=== PATIENT | male | born 1970 | race Caucasian/White ===

== ENCOUNTER → 2016-12-27 | Outpatient (CLI) | payer OTHER ==
--- NOTE | 2016-12-27 09:43 | PFTRPT ---
Tech: Lashanda RANKIN, STRATEGIC COMMUNICATIONS SPECIALIST Age: 46 Sex: Male Race: Height: 68.00 Inches Weight: 230.00 Lbs BSA: 2.17 Diagnosis: ASTHMA TECH NOTES: Test appears to be valid, although the ATS standard for "end of test " was not met. The patient felt as if he was going to pass out during FVC maneuver. The patient was given four puffs of albuterol for postbronchodilator. PULMONARY FUNCTION REPORT ORDERING PROVIDER: Dee Dee Ashraf M.D. DATE OF SERVICE: 12/27/16 SPIROMETRY: Pre and post bronchodilator study of excellent technical quality. Some difficulty with the required maneuver is noted. The forced vital capacity is normal. The FEV1 is in proportion. The obstructive index is, therefore, normal. FLOW VOLUME LOOP: The expiratory limb of the flow volume loop does suggest some difficulty with the required maneuver. No significant additional bronchodilator response is identified. LUNG VOLUMES: The total lung capacity is normal. The residual volume is in proportion. DIFFUSION CAPACITY: The diffusion capacity is normal. HEMOGLOBIN: No hemoglobin is available for correction. AIRWAY MECHANICS: Airways resistance and conductance are normal. IMPRESSION: Probably normal study. MTDD
== END ==
LOC: M CARPUL 08:55
PROVIDERS: ATTEND Internal Medicine
DX: I11.9 Hypertensive heart disease without heart failure (principal); J45.909 Unspecified asthma, uncomplicated

== ENCOUNTER 2017-07-26 20:29 | Emergency (ER) | payer OTHER ==
[~2017-07-26] VITALS: Ht 172.7 cm; Wt 111.4 kg
[2017-07-26] MEDS ORDERED: NS 1,000 ML IV SCH (20:46)
[2017-07-26] MEDS ORDERED: MECL1CHW2 PO (20:49)
[2017-07-26] MEDS ORDERED: MECLIZINE 25 MG TABLET PO ONE (21:00)
--- NOTE | 2017-07-26 21:10 | REPUSA ---
CT of the head Clinical history: altered mental status. Comparison: 01/01/2015. Technique: Multiple axial CT images were obtained through the head without administration of contrast . Findings: The ventricles and sulci are symmetric bilaterally. There is no evidence of acute hemorrhag e or infarct. There is no midline shift, mass effect, or extra-axial fluid collection. The osseous st ructures are unremarkable. The visualized paranasal sinuses and mastoid air cells are clear. Impression: Negative study.
[2017-07-26 21:11] LABS: BASO # 0.1 10^3/uL (0.0-0.2); BASO % 0.3 % (0.0-1.0); EOS % 0.1 % (0.0-3.0); IMMATURE GRANULOCYTE % 0.5 % (0-0); LYMPH # 0.7 10^3/uL (1.5-4.5); LYMPH % 3.7 % (24.0-44.0); MEAN CORPUSCULAR HEMOGLOBIN 28.9 pg (27.0-33.0); MEAN CORPUSCULAR HGB CONC 33.7 g/dl (32.0-36.5); MEAN CORPUSCULAR VOLUME 85.7 fl (80.0-96.0); MONO % 5.5 % (0.0-5.0); NEUTROPHILS % 89.9 % (36.0-66.0); PLATELET COUNT, AUTOMATED 291 10^3/uL (150-450); RED CELL DISTRIBUTION WIDTH 12.1 % (11.5-14.5); WHITE BLOOD COUNT 17.8 10^3/uL (4.0-10.0)
[2017-07-26 21:45] LABS: METHADONE URINE NEGATIVE (NEGATIVE)
[2017-07-26 21:50] LABS: ALBUMIN 4.1 GM/DL (3.2-5.2); ALBUMIN/GLOBULIN RATIO 1.24 (1.00-1.93); ALKALINE PHOSPHATASE 79 U/L (45-117); ALT/SGPT 31 U/L (12-78); ANION GAP 12 MEQ/L (8-16); AST/SGOT 15 U/L (7-37); BILIRUBIN,DIRECT 0.1 MG/DL (0.0-0.2); BILIRUBIN,TOTAL 0.5 MG/DL (0.2-1.0); BLOOD UREA NITROGEN 14 MG/DL (7-18); CARBON DIOXIDE LEVEL 23 MEQ/L (21-32); CHLORIDE LEVEL 101 MEQ/L (98-107); CREATININE FOR GFR 0.99 MG/DL (0.70-1.30); GLOMERULAR FILTRATION RATE > 60.0 (>60); GLUCOSE, FASTING 124 MG/DL (70-105); POTASSIUM SERUM 4.2 MEQ/L (3.5-5.1); SODIUM LEVEL 136 MEQ/L (136-145); TOTAL PROTEIN 7.4 GM/DL (6.4-8.2)
[2017-07-26] MEDS ORDERED: MECL-68 PO (22:06)
[2017-07-26 22:18] VITALS: BP 135/76
--- NOTE | 2017-07-27 07:07 | ECGEPIP ---
Stationary ECG Study [facility] - ED Test Date: 2017-07-26 Pat Name: CLEMENTE ORTIZ Department: Room: - Gender: M Nozzleman: MIRNA : 1970 Requested By: KIOL SANFORD Order Number: [id number] Reading MD: Lili Gibbs Measurements Intervals Casa Rate: 97 P: 29 SD: 149 QRS: 2 QRSD: 92 T: 1 QT: 325 QTc: 414 Interpretive Statements SINUS RHYTHM INFERIOR MYOCARDIAL INFARCTION, PROBABLY OLD NSTTW ABNORMALITY NO PRIOR FOR COMPARISON Electronically Signed On 07-27-2017 7:07:41 EST by Lili Gibbs
== END 2017-07-26 22:25 | disposition home or self-care (01) ==
LOC: EDBD 20:29 → M ED 20:29
DX: R55 Syncope and collapse (principal); R42 Dizziness and giddiness; H83.09 Labyrinthitis, unspecified ear; F11.10 Opioid abuse, uncomplicated; I25.2 Old myocardial infarction; R94.31 Abnormal electrocardiogram [ECG] [EKG]; I10 Essential (primary) hypertension; J45.909 Unspecified asthma, uncomplicated; Z82.49 Family history of ischemic heart disease and other diseases of the circulatory system
CPT/HCPCS: 70450; 80048; 80076; 80307; 82550; 82553; 84443; 84484; 85025; 93005; 93041; 94760; 99284; G0480

== ENCOUNTER 2018-01-18 07:48 | Emergency (ER) | payer OTHER | END 2018-01-18 08:31 | disposition home or self-care (01) | LOC: M ED 07:48 | DX: H10.11 Acute atopic conjunctivitis, right eye (principal); I10 Essential (primary) hypertension; E78.00 Pure hypercholesterolemia, unspecified; K21.9 Gastro-esophageal reflux disease without esophagitis; J30.9 Allergic rhinitis, unspecified; Z79.899 Other long term (current) drug therapy | CPT/HCPCS: 99283 ==

== ENCOUNTER 2018-03-06 22:52 | Emergency (ER) | payer OTHER ==
[2018-03-06] MEDS: LIDOCAINE 1% MDV 20ML VIAL IM ×2 (23:52)
[2018-03-07] MEDS: NORCO 5/325MG TABLET (BULK FOR ED) PO ×2 (00:47)
== END 2018-03-07 00:51 | disposition home or self-care (01) ==
LOC: M ED 22:52
DX: S61.311A Laceration without foreign body of left index finger with damage to nail, initial encounter (principal); S61.318A Laceration without foreign body of other finger with damage to nail, initial encounter (principal); W26.0XXA Contact with knife, initial encounter; Y92.099 Unspecified place in other non-institutional residence as the place of occurrence of the external cause; Y93.9 Activity, unspecified; Y99.9 Unspecified external cause status; I10 Essential (primary) hypertension; K21.9 Gastro-esophageal reflux disease without esophagitis; Z79.899 Other long term (current) drug therapy
CPT/HCPCS: 73140

== ENCOUNTER 2019-11-16 02:12 | Day surgery (SDC) | payer OTHER ==
[2019-11-16] VITALS (8 sets, daily range): BP systolic 121–134; BP diastolic 65–76; O2SAT 99
[~2019-11-16] VITALS: Ht 172.7 cm; Wt 113.0 kg
[~2019-11-16 02:12] MED LIST: MECL1CHW PO; MECL1TAB31 PO; OMEP40CA97 PO; POLYOPD OU; ZYRT10CA PO
[2019-11-16] MEDS ORDERED: PIPERACILLIN/TAZOBACTAM SOD 3.375 GM in D5W MINI-BAG PLUS 50 ML IV ONE (03:45)
[2019-11-16] MEDS ORDERED: MORPHINE 4 MG/ML 1ML VIAL/SYRINGE (J2270) IV ONE (03:45)
[2019-11-16] MEDS ORDERED: ALL10TAB29 PO (04:18)
[2019-11-16] MEDS: LR 1,000 ML IV SCH ×4 (04:29→16:15)
[2019-11-16] MEDS ORDERED: SUMA50TA2 PO (04:31)
[2019-11-16] MEDS ORDERED: ROSU40TA4 PO (04:31)
[2019-11-16] MEDS ORDERED: IBUP1TAB6 PO (04:31)
[2019-11-16] MEDS ORDERED: BENZ200C70 PO (04:31)
[2019-11-16] MEDS ORDERED: VENTAER INH (04:31)
[2019-11-16] MEDS ORDERED: FLON1SPR NARES (04:31)
[2019-11-16] MEDS ORDERED: ONDANSETRON 4MG/2ML VIAL (J2405 PER 1MG) IV ONE (04:45)
[2019-11-16] MEDS ORDERED: BUPIVACAINE/EPIN 0.25% 30 ML VIAL As Ordered ONE (07:52)
[2019-11-16] MEDS ORDERED: MIDAZOLAM INJ 2MG/2ML VIAL (J2250 PER 1MG) As Ordered ONE (08:00)
[2019-11-16] MEDS ORDERED: fentaNYL 100 MCG/2 ML INJECTION (J3010) As Ordered ONE ×2 (08:01→08:50)
[2019-11-16] MEDS ORDERED: SUCCINYLCHOLINE 100 MG/5 ML SYRINGE (J0330) As Ordered ONE (08:17)
[2019-11-16] MEDS ORDERED: dexameTHASONE 4 MG/ML 1ML VIAL (J1100 PER 1MG) As Ordered ONE ×2 (08:51→08:52)
[2019-11-16] MEDS ORDERED: propofoL 200 MG/20 ML VIAL As Ordered ONE (08:51)
[2019-11-16] MEDS ORDERED: LIDOCAINE 2% 100MG/5ML SDV (FOR ANES.) As Ordered ONE (08:51)
[2019-11-16] MEDS ORDERED: ROCURONIUM BROMIDE 50 MG/5 ML VIAL As Ordered ONE (08:51)
[2019-11-16] MEDS ORDERED: ONDANSETRON 4MG/2ML VIAL (J2405 PER 1MG) As Ordered ONE (08:52)
[2019-11-16] MEDS ORDERED: ACETAMINOPHEN 1000MG 100ML IV BTL (OFIRMEV) (J0131 PER 10MG) As Ordered ONE (08:54)
[2019-11-16] MEDS ORDERED: KETOROLAC 60 MG/2 ML VIAL (J1885 PER 15MG) As Ordered ONE (08:55)
[2019-11-16] MEDS ORDERED: SUGAMMADEX SODIUM 500 MG/5 ML VIAL (BRIDION) As Ordered ONE (08:55)
[2019-11-16] MEDS ORDERED: IPRATROPIUM 0.5MG/ALBUTEROL 2.5MG INH SOL UD 3ML (DUONEB)(J7620) NEB PRN (09:30)
[2019-11-16] MEDS ORDERED: MORPHINE 2 MG/ML 1ML VIAL (J2270) IV PRN ×2 (09:30)
[2019-11-16] MEDS ORDERED: ONDANSETRON 4MG/2ML VIAL (J2405 PER 1MG) IV PRN ×2 (09:30→09:45)
[2019-11-16] MEDS ORDERED: NORCO, ANEXSIA 5/325MG TABLET (HYDROcodone/ACETAMINOPHEN) PO PRN ×2 (09:30)
[2019-11-16] MEDS ORDERED: fentaNYL 100 MCG/2 ML INJECTION (J3010) IV PRN (09:45)
[2019-11-16] MEDS ORDERED: HYDROMORPHONE HCL 0.5 MG/ 0.5 ML SYRINGE (J1170 PER 1) IV PRN (09:45)
[2019-11-16] MEDS ORDERED: oxyCODONE 5MG TAB PO PRN (09:45)
[2019-11-16] MEDS ORDERED: LR 1,000 ML IV SCH (09:45)
[2019-11-16] MEDS: PIPERACILLIN/TAZOBACTAM SOD 3.375 GM in D5W MINI-BAG PLUS 50 ML IV SCH ×3 (10:50→23:47)
[2019-11-16] MEDS: IPRATROPIUM 0.5MG/ALBUTEROL 2.5MG INH SOL UD 3ML (DUONEB)(J7620) NEB SCH ×2 (11:16→20:00)
[2019-11-16] MEDS: KETOROLAC 30 MG/ML 1ML VIAL (J1885 PER 15MG) IV SCH ×2 (15:05→20:32)
[2019-11-17 02:15] VITALS: BP 140/73
[2019-11-17] MEDS: IPRATROPIUM 0.5MG/ALBUTEROL 2.5MG INH SOL UD 3ML (DUONEB)(J7620) NEB SCH ×2 (03:13→07:31)
[2019-11-17] MEDS: LR 1,000 ML IV SCH ×2 (03:55→07:55)
[2019-11-17] MEDS: KETOROLAC 30 MG/ML 1ML VIAL (J1885 PER 15MG) IV SCH ×2 (03:56→07:55)
[2019-11-17 06:03] VITALS: BP 139/79
[2019-11-17] MEDS: PIPERACILLIN/TAZOBACTAM SOD 3.375 GM in D5W MINI-BAG PLUS 50 ML IV SCH (06:09)
[2019-11-17] MEDS ORDERED: AUGM500T34 PO (08:32)
[2019-11-17] MEDS ORDERED: HYDR-3715 PO (08:32)
[2019-11-17] MEDS ORDERED: PANTOPRAZOLE 40MG VIAL (C9113 PER 1) IV SCH (09:00)
--- NOTE | 2019-12-07 12:32 | RO ---
DATE OF PROCEDURE: 11/16/2019 PREOPERATIVE DIAGNOSIS: Acute appendicitis. POSTOPERATIVE DIAGNOSIS: Acute appendicitis. PROCEDURE: Laparoscopic appendectomy. SURGEON: Leif Augustin MD SUPPORT ANALYST: ANESTHESIA: General endotracheal anesthesia. ESTIMATED BLOOD LOSS: Minimal. FLUIDS: Crystalloid. BRIEF PROCEDURE SUMMARY: The patient was brought to the operating room and was given general anesthesia. After adequate anesthesia and preoperative antibiotics were given, the patient was prepped and draped in the usual sterile fashion. Next, a supraumbilical incision was made with skin knife. Blunt dissection was carried down to fascia. A Veress needle placed into the abdominal cavity insufflated to 15 mm of pressure and a dilating 12 mm trocar was placed. Next, two 5 mm trocars were placed and the appendix was visualized with the patient in Trendelenburg left side down position, and the mesentery of the appendix was taken down with the harmonic scalpel all the way to the base of the appendix/cecal wall. Once this was performed, a ANTONIA stapler was used to transect the base of the appendix placed in an Endo Catch bag and brought out through the umbilicus. All trocars were removed from the abdominal cavity once the patient had the right lower quadrant copiously irrigated until clear. Then, the umbilical site was closed with #0 Vicryl in the fascial layer and all incisions were closed with #4-0 Vicryl. Steri-Strips and dry sterile dressing was applied. The patient was awakened from his anesthesia, extubated, brought to recovery room awake, alert, hemodynamically stable. Sponge and needle counts correct times two.
== END 2019-11-17 10:45 | disposition home or self-care (01) ==
LOC: M ED 02:12 → M SDC 02:13 → ENRESERVDT 06:35 → ENRESERVTM 06:35 → M MS5PR 10:25 → M SDC 11-17 10:45
PROVIDERS: ATTEND Surgery
DX: K35.30 Acute appendicitis with localized peritonitis, without perforation or gangrene (principal); J45.909 Unspecified asthma, uncomplicated; I10 Essential (primary) hypertension; K21.9 Gastro-esophageal reflux disease without esophagitis; E78.5 Hyperlipidemia, unspecified; G43.909 Migraine, unspecified, not intractable, without status migrainosus; G47.30 Sleep apnea, unspecified; E66.9 Obesity, unspecified; Z68.37 Body mass index [BMI] 37.0-37.9, adult; R10.31 Right lower quadrant pain; Z79.899 Other long term (current) drug therapy
CPT/HCPCS: 44970; 88304; 94640; 96365; 96366; 96375; 96376; 99284; C9113; J0131; J0330; J1100; J1885; J2250; J2270; J2405; J2543; J3010

== ENCOUNTER 2020-11-05 23:24 | Emergency (ER) | payer MEDICARE, OTHER ==
[~2020-11-05] VITALS: Ht 172.7 cm; Wt 123.4 kg
[~2020-11-05 23:24] MED LIST changes: +AUGM500T34 PO; +BENZ200C70 PO; +CETI-24 PO; +FLON1SPR NARES; +HYDR-3715 PO; +IBUP1TAB6 PO; +ROSU40TA4 PO; +SUMA50TA2 PO; +VENTAER INH
[2020-11-05] MEDS ORDERED: IBUP80TA PO (23:40)
[2020-11-05] MEDS ORDERED: HYDR-3713 PO (23:40)
[2020-11-05] MEDS ORDERED: PENI500T PO (23:40)
[2020-11-06] MEDS ORDERED: LIDVISCBTL SSP (02:09)
[2020-11-06] MEDS ORDERED: LIDOCAINE VISCOUS 2% SOLN 15ML UDC SS ONE (02:10)
[2020-11-06] MEDS ORDERED: KETOROLAC 60MG 2ML VIAL IM ONE (02:10)
[2020-11-06 02:46] VITALS: BP 156/81
== END 2020-11-06 02:47 | disposition home or self-care (01) ==
LOC: M ED 23:24
DX: K08.89 Other specified disorders of teeth and supporting structures (principal); I10 Essential (primary) hypertension; E78.5 Hyperlipidemia, unspecified; J45.909 Unspecified asthma, uncomplicated; K21.9 Gastro-esophageal reflux disease without esophagitis; G47.33 Obstructive sleep apnea (adult) (pediatric); Z79.899 Other long term (current) drug therapy
CPT/HCPCS: 96372; 99283; J1885

== ENCOUNTER → 2021-11-14 | Outpatient (CLI) | payer MEDICARE ==
[~2021-11-14] MED LIST changes: +GABA-1171 PO; +HYDR-3713 PO; +IBUP80TA PO; +LIDVISCBTL SSP; +OMEP40CA4 PO; -OMEP40CA97 PO; +PENI500T PO
== END ==
LOC: M LABSMTC 09:15
PROVIDERS: ATTEND Anesthesiology
DX: Z11.52 Encounter for screening for COVID-19 (principal); Z20.822 Contact with and (suspected) exposure to COVID-19

== ENCOUNTER 2021-11-18 07:44 | Day surgery (SDC) | payer OTHER ==
[~2021-11-18] VITALS: Ht 172.7 cm; Wt 117.5 kg
[~2021-11-18 07:44] MED LIST changes: +LIDOCAINE 2% 100MG/5ML SDV (FOR ANES.) As Ordered ONE; +NS 1,000 ML IV ONE; +propofoL 200 MG/20 ML VIAL As Ordered ONE
[2021-11-18] MEDS ORDERED: fentaNYL 100 MCG/2 ML INJECTION As Ordered ONE (08:18)
[2021-11-18 09:15] VITALS: BP 120/87
== END 2021-11-18 12:55 | disposition home or self-care (01) ==
LOC: M OPP 07:44
PROVIDERS: ATTEND Internal Medicine Gastroenterology
DX: Z12.11 Encounter for screening for malignant neoplasm of colon (principal); K62.1 Rectal polyp; K57.30 Diverticulosis of large intestine without perforation or abscess without bleeding; K64.0 First degree hemorrhoids; R12 Heartburn; K29.60 Other gastritis without bleeding; Z79.899 Other long term (current) drug therapy; F17.220 Nicotine dependence, chewing tobacco, uncomplicated
CPT/HCPCS: 43239; 45385; 88305; J3010